=== PATIENT | female | born 1945 | race Caucasian/White ===

== ENCOUNTER 2017-10-09 14:05 | Emergency (ER) | payer OTHER ==
[~2017-10-09] VITALS: Ht 152.4 cm; Wt 63.5 kg
[~2017-10-09 14:05] MED LIST: AMLODIPINE BESYL5 MG PO; AMPYRA10 MG; ASPIRIN325 MG PO; ATORVASTATIN CA20 MG PO; GABAPENTIN400 MG PO; LIPITOR40 MG PO; OMEPRAZOLE40 MG PO; PANTOPRAZOLE SO40 MG PO; PROMETHAZINE HC25 M1 PO; SERTRALINE HCL100 MG PO; SUCRALFATE1 G/10 ML NG; [UNRECOGNIZED DRUG - OTHER]; linzess
[2017-10-09] MEDS ORDERED: CYCLOBENZAPRINE HCL 10 MG TAB PO ONE (14:30)
[2017-10-09] MEDS ORDERED: HYDROCODONE/APAP 5MG-325MG TAB PO ONE (14:30)
[2017-10-09] MEDS ORDERED: OMEPRAZOLE40 MG (14:43)
[2017-10-09 16:05] VITALS: BP 142/78
== END 2017-10-09 16:08 | disposition home or self-care (01) ==
LOC: FSED 14:05
DX: S83.412A Sprain of medial collateral ligament of left knee, initial encounter (principal); W18.30XA Fall on same level, unspecified, initial encounter; Y93.89 Activity, other specified; Z82.49 Family history of ischemic heart disease and other diseases of the circulatory system; M17.12 Unilateral primary osteoarthritis, left knee
CPT/HCPCS: 99283

== ENCOUNTER → 2017-11-08 | Emergency (ER) | payer OTHER ==
[~2017-11-08] MED LIST changes: +OMEPRAZOLE40 MG
== END | disposition left against medical advice (07) ==
LOC: ER 14:30
DX: R07.9 Chest pain, unspecified (principal)

== ENCOUNTER 2018-03-25 10:51 | Emergency (ER) | payer OTHER ==
[~2018-03-25] VITALS: Ht 154.9 cm; Wt 63.5 kg
--- OUTSIDE RECORDS SUMMARY | 2018-03-25 10:55 | XMS REPORT | Clinical Summary ---
Author Author [facility] Address Unknown Phone Unavailable Care Team Providers Care Infrastructure Developer Name Role Phone Asked, No Pcp PCP Unavailable Allergies Comments Active Allergy Reactions Severity Noted Date Penicillins 07/31/2017 Sulfa (Sulfonamide 07/31/2017 Antibiotics) Medications Not on file Active Problems Not on file Encounters Care Team Description Date Type Specialty Dominga Roberts MD Brain lesion; Memory loss; MS (multiple sclerosis) 07/31/2017 Hospital Radiology Encounter Dominga Roberts MD Brain lesion (Primary Dx); Memory loss; MS (multiple sclerosis) 07/27/2017 Transcribe Access Orders after 03/24/2017 Social History Date Tobacco Use Types Packs/Day Years Used Never Assessed Sex Assigned at Date Recorded Not on file Industry Job Start Date Occupation Not on file Not on file Not on file Travel End Travel History Travel Start No recent travel history available. Last Filed Vital Signs Time Taken Vital Sign Reading - Blood Pressure - - Pulse - - Temperature - - Respiratory Rate - - Oxygen Saturation - - Inhaled Oxygen - Concentration 07/31/2017 1:34 PM CDT Weight 63.5 kg (140 lb) 07/31/2017 1:34 PM CDT Height 157.5 cm (5' 2") 07/31/2017 1:34 PM CDT Body Mass Index 25.61 Plan of Treatment Health Maintenance Due Date Last Done Comments BREAST CANCER SCREENING 1996 COLON CANCER SCREENING 1996 SHINGRIX VACCINE (1 of 2) 1996 ZOSTER VACCINE 2006 PNEUMOCOCCAL 2011 POLYSACCHARIDE VACCINE AGE 65 AND OVER PNEUMOCOCCAL-13 2011 INFLUENZA VACCINE 11/25/2017 Procedures Comments Procedure Name Priority Date/Time Associated Diagnosis MRI BRAIN W WO CONTRAST Routine 07/31/2017 Brain lesion 2:23 PM CDT Memory loss MS (multiple sclerosis) ESTIMATED GFR Routine 07/31/2017 1:32 PM CDT POC CREATININE Routine 07/31/2017 1:32 PM CDT after 03/24/2017 Results * MRI Brain W Wo Contrast (07/31/2017 2:23 PM CDT) Narrative Performed At [facility] EXAMINATION: MRI BRAIN W WO CONTRAST COMPARISON: August 03, 2012 CLINICAL HISTORY G93.9 Disorder of brainunspecified, R41.3 Other amnesia. TECHNIQUE: Multiplanar multisequence examination was performed with and without contrast FINDINGS: There is no definite diffusion restriction. The ventricles and subarachnoid spaces are mildly dilated. There are chronic nonspecific microvascular ischemic changes in the centrum semiovale and basal ganglia bilaterally. There is no acute hemorrhage or hemosiderin deposition. There is no abnormal enhancement of the brain parenchyma or the leptomeninges. IMPRESSION: No significant acute abnormalities or abnormal enhancing lesions. Stable mild involutional changes and mild diffuse chronic microvascular disease. [id number] Procedure Note Interface, Radiology Results Incoming - 07/31/2017 2:31 PM CDT EXAMINATION: MRI BRAIN W WO CONTRAST COMPARISON: August 03, 2012 CLINICAL HISTORY G93.9 Disorder of brain unspecified, R41.3 Other amnesia. TECHNIQUE: Multiplanar multisequence examination was performed with and without contrast FINDINGS: There is no definite diffusion restriction. The ventricles and subarachnoid spaces are mildly dilated. There are chronic nonspecific microvascular ischemic changes in the centrum semiovale and basal ganglia bilaterally. There is no acute hemorrhage or hemosiderin deposition. There is no abnormal enhancement of the brain parenchyma or the leptomeninges. IMPRESSION: No significant acute abnormalities or abnormal enhancing lesions. Stable mild involutional changes and mild diffuse chronic microvascular disease. [id number] Performing Organization Address City/State/Zipcode Phone Number [facility] [address] [place] [address] * Estimated GFR (07/31/2017 1:32 PM CDT) GFR Non Af Amer 71 mL/min/1.[address] [facility] DEPARTMENT OF PATHOLOGY AND GENOMIC MEDICINE GFR Af Amer 86 mL/min/1.[address] [facility] DEPARTMENT OF Comment: PATHOLOGY AND Chronic kidney disease: <60 GENOMIC MEDICINE mL/min/1.73m2 Kidney failure: <15 mL/min/1.73m2 The estimated GFR is calculated from the IDMS-traceable Modification of Diet in Renal Disease Equation. The accuracy of the calculation is poor when the creatinine is normal. Calculated values >90 mL/min/1.73m2 are not reported. This equation has not been validated in children (<18 years), women, the elderly (>70 years), or ethnic groups other than Caucasians and Americans. Specimen Blood Performing Organization Address City/State/Zipcode Phone Number [facility] DEPARTMENT OF [address] [place] [address] PATHOLOGY AND GENOMIC MEDICINE * POC creatinine (07/31/2017 1:32 PM CDT) POC creatinine 0.8 0.5 - 0.9 mg/dl [facility] DEPARTMENT OF Comment: PATHOLOGY AND Meter ID: [id number] GENOMIC MEDICINE Cloth Bolt Bander: Maninder Santoro Specimen Blood Performing Organization Address [facility]/Zipcode Phone Number [facility] DEPARTMENT OF [address] [place] [phone] PATHOLOGY AND GENOMIC MEDICINE after 03/24/2017 Insurance Payer Benefit Subscriber ID Type Phone Address Plan / Group [employer] xxxxxxxxx O [facility] Advance Directives Patient has advance care planning documents on file. For more information, micha castelan contact: Aditya Staton [address] [place] [address]
--- OUTSIDE RECORDS SUMMARY | 2018-03-25 10:55 | XMS REPORT | Continuity of Care Document ---
Author Author [facility] Interface Address Unknown Phone Unavailable Problems Problem Status Onset Date Classification Date Reported Comments Source Chest pain Active 05/14/2015 Problem 10/09/[address] [facility] Medications Medication Details Route Status Patient Instructions Ordering Provider Order Date Source Dalfampridine (Ampyra) 10 Mg Tab.er.12h, Active 10/09/[address] [facility] Gabapentin 400 Mg Capsule, 400 Mg Oral Daily Active 10/09/[address] [facility] Linzess , Active 10/09/[address] [facility] Promethazine Hcl 25 Mg Tablet, 25 Mg Oral Daily Active 10/09/[address] [facility] Sucralfate 1 G/10 Ml Susp Before Meals And At Bedtime Active [place] 05/16/[address] [facility] Omeprazole 40 Mg Capsule., Mg Oral Daily Active 05/16/[address] [facility] Pantoprazole Sodium (Protonix) 40 Mg Tablet., 40 Mg Oral Daily Active [place] 05/16/[address] [facility] Atorvastatin Calcium (Lipitor) 40 Mg Tablet, Oral Daily Active 05/07/[address] [facility] Hydrocholothiazide , Active 05/07/[address] [facility] Amlodipine Besylate 5 Mg Tablet Daily Active [facility] Aspirin 325 Mg Tablet Daily Active [facility] Atorvastatin Calcium 20 Mg Tablet Today At 9:00PM Active [facility] Omeprazole 40 Mg Capsule. Daily Active [facility] Sertraline Hcl 100 Mg Tablet Bedtime Active [facility] Allergies, Adverse Reactions, Alerts Substance Category Reaction Severity Reaction type Status Date Reported Comments Source Penicillin Mild Allergy to Substance Active 10/14/[address] [facility] Iodine Mild Allergy to Substance Active 10/14/[address] [facility] Cephalexin Mild Allergy to Substance Active 10/14/[address] [facility] Levofloxacin Mild Allergy to Substance Active 10/14/[address] [facility] Immunizations Immunization Date Given Site Status Last Updated Comments Source Results Order Name Results Value Reference Range Date Interpretation Comments Source Vital Signs Vital Sign Value Date Comments Source Encounters Location Location Details Encounter Type Encounter Number Reason For Visit Attending Provider ADM Date DC Date Status Source Departed Emergency Room [id number] DUONG MIRZA MD 10/09/2017 10/09/[address] [facility] Procedures Procedure Code Date Perfomer Comments Source
[2018-03-25] MEDS ORDERED: LISINOPRIL10 MG PO (11:16)
[2018-03-25] MEDS ORDERED: OXYBUTYNIN CHLOR5 MG PO (11:16)
--- NOTE | 2018-03-25 13:06 | Diagnostic Imaging Report ---
CT BRAIN -[facility] HISTORY: Difficulty walking COMPARISON: Head CT 05/07/2015 TECHNIQUE: Noncontrast axial scans were obtained from skull base to the vertex. Coronal and sagittal reconstructions obtained from the axial data. One or more of the following dose reduction techniques were used: Automated exposure control, adjustment of the mA and/or kV according to patient size, and/or utilization of iterative reconstruction technique. DISCUSSION: Scalp/Skull: Unremarkable. Brain sulci: Appropriate for patient's age. Ventricles: Normal in size and configuration. No hydrocephalus. Extra-axial spaces: No masses or fluid collections. Mild carotid siphon calcifications are present. Parenchyma: Moderate periventricular white matter hypodensities are likely chronic microvascular ischemic changes. Otherwise, no masses, hemorrhage, or large vascular territory acute infarct. Dural sinuses: No abnormal densities. Sellar/Suprasellar region: Intact. Skull base: Intact. Incidental findings: None. IMPRESSION: 1. No acute intracranial abnormalities. 2. Moderate supratentorial chronic microvascular ischemic change. Signed by: Dr. Johnny Durham M.D. on 03/25/2018 1:03 PM
[2018-03-25] MEDS ORDERED: METHYLPREDNISOLONE ACETATE 80 MG/ML VIAL IM ONE ×2 (13:30)
[2018-03-25 14:30] VITALS: BP 130/70
== END 2018-03-25 14:11 | disposition home or self-care (01) ==
LOC: FSED 10:51
DX: R42 Dizziness and giddiness (principal); R53.1 Weakness; R26.2 Difficulty in walking, not elsewhere classified; G35 Multiple sclerosis; I10 Essential (primary) hypertension; E78.00 Pure hypercholesterolemia, unspecified; Z86.73 Personal history of transient ischemic attack (TIA), and cerebral infarction without residual deficits
CPT/HCPCS: 70450; 80053; 81003; 82553; 84484; 85025; 93005; 96372; 99283; J1040